=== PATIENT | male | born 1950 | race Caucasian/White ===

== ENCOUNTER 2018-05-14 11:19 | Emergency (ER) | payer MEDICARE, MEDICAID ==
[~2018-05-14] VITALS: Ht 175.3 cm; Wt 84.1 kg
[2018-05-14 11:58] VITALS: BP 152/92
[2018-05-14] MEDS ORDERED: OXYC-658 PO (12:18)
== END 2018-05-14 12:25 | disposition home or self-care (01) ==
LOC: ER 11:19
DX: G89.29 Other chronic pain (principal); M54.9 Dorsalgia, unspecified; M25.569 Pain in unspecified knee; M19.90 Unspecified osteoarthritis, unspecified site; Z79.899 Other long term (current) drug therapy
CPT/HCPCS: 99283

== ENCOUNTER 2021-11-03 17:29 | Emergency (ER) | payer MEDICARE, MEDICAID ==
[~2021-11-03] VITALS: Ht 175.3 cm; Wt 77.3 kg
[2021-11-03] MEDS ORDERED: normal saline 1000ml 1,000 ML IV ONE ×2 (17:55→19:00)
--- NOTE | 2021-11-03 18:30 | NUR ---
bedside report to rupesh dueñas.
--- NOTE | 2021-11-03 20:32 | NUR ---
Patient found wandering in room and in [place]. Patient redirected and given call light repeatedly. Patient appears confused and does not remember why he should not be getting up.
[2021-11-03] MEDS ORDERED: NALO4SPR BOTHNARES (21:53)
[2021-11-03 22:46] VITALS: BP 128/75
== END 2021-11-03 22:49 | disposition home or self-care (01) ==
LOC: ER 17:29
DX: F10.10 Alcohol abuse, uncomplicated (principal); M19.90 Unspecified osteoarthritis, unspecified site; G89.29 Other chronic pain; Z79.899 Other long term (current) drug therapy; T40.601A Poisoning by unspecified narcotics, accidental (unintentional), initial encounter; R40.4 Transient alteration of awareness; Y92.89 Other specified places as the place of occurrence of the external cause; Y90.9 Presence of alcohol in blood, level not specified
CPT/HCPCS: 96360; 96361; 99283; J7030

== ENCOUNTER 2021-11-07 13:59 | Emergency (ER) | payer MEDICARE, MEDICAID ==
[~2021-11-07] VITALS: Ht 175.3 cm; Wt 78.0 kg
[~2021-11-07 13:59] MED LIST: NALO4SPR BOTHNARES
--- NOTE | 2021-11-07 14:15 | NUR ---
pt stated he does not what the "white pwder was or who gave it to him "a friend" pt denies wanting to harm himself. pt stated "sometimes i do stupid stuff"
[2021-11-07 15:37] VITALS: BP 137/85
== END 2021-11-07 15:38 | disposition home or self-care (01) ==
LOC: ER 14:00
DX: T50.901A Poisoning by unspecified drugs, medicaments and biological substances, accidental (unintentional), initial encounter (principal); G89.29 Other chronic pain; M19.90 Unspecified osteoarthritis, unspecified site; F11.90 Opioid use, unspecified, uncomplicated; F19.90 Other psychoactive substance use, unspecified, uncomplicated; Z79.899 Other long term (current) drug therapy; Y92.89 Other specified places as the place of occurrence of the external cause
CPT/HCPCS: 99283

== ENCOUNTER 2021-11-19 16:57 | Emergency (ER) | payer MEDICARE, MEDICAID ==
[~2021-11-19] VITALS: Ht 170.2 cm; Wt 77.3 kg
--- NOTE | 2021-11-19 17:25 | NUR ---
Contacted poison control. Poison control stated to watch for FAGOTER respiratory depression and worsening symptoms. Watch pt for 4-6hrs after last dose of Narcan. Last dose of Narcan given by EMS [facility] OPERATOR.
[2021-11-19 18:08] LABS: BASOPHILS % (AUTO) 0.4 % (0-1); EOSINOPHILS # (AUTO) 0.2 X10'3 (0-0.9); EOSINOPHILS % (AUTO) 3.7 % (0-6); HEMATOCRIT 35.7 % (42.0-52.0); HEMOGLOBIN 12.3 g/dl (14.0-17.9); LYMPHOCYTES # (AUTO) 0.8 X10'3 (1.1-4.8); LYMPHOCYTES % (AUTO) 14.2 % (21-51); MEAN CORPUSCULAR HEMOGLOBIN 32.1 PG (27.0-31.0); MEAN CORPUSCULAR HGB CONC 34.4 g/dL (33.0-36.5); MEAN CORPUSCULAR VOLUME 93.3 FL (78-98); MEAN PLATELET VOLUME 7.5 FL (7.4-10.4); MONOCYTES # (AUTO) 0.5 X10'3 (0-0.9); MONOCYTES % (AUTO) 9.1 % (2-12); NEUTROPHILS # (AUTO) 4.3 X10'3 (1.8-7.7); NEUTROPHILS % (AUTO) 72.6 % (42-75); PLATELET COUNT 194 X10'3 (140-440); RED BLOOD COUNT 3.83 X10'6 (4.70-6.10); RED CELL DISTRIBUTION WIDTH 13.3 % (11.5-14.5); WHITE BLOOD COUNT 5.9 X10'3 (4.5-11.0)
[2021-11-19 18:21] LABS: CLARITY,URINE CLEAR (Clear); COLOR,URINE YELLOW (Yellow); GLUCOSE, URINE NEGATIVE (Neg); KETONES,URINE NEGATIVE (Neg); LEUKOCYTE ESTERASE ,URINE NEGATIVE (Neg); NITRITES, URINE NEGATIVE (Neg); OCCULT BLOOD,URINE NEGATIVE (Neg); PROTEIN,URINE NEGATIVE (Neg); UROBILINOGEN,URINE 0.2 E.U/dL (0.2-1.0)
[2021-11-19 18:22] LABS: ALANINE AMINOTRANSFERASE 51 U/L (12-78); ALBUMIN 3.4 G/DL (3.4-5.0); ALBUMIN/GLOBULIN RATIO 1.1 (1.1-1.5); ALKALINE PHOSPHATASE 83 IU/L (46-116); ANION GAP 10 (8-16); ASPARTATE AMINO TRANSFERASE 62 U/L (10-37); BILIRUBIN,TOTAL 0.5 MG/DL (0.1-1.0); BLOOD UREA NITROGEN 8 MG/DL (7-18); BUN/CREATININE RATIO 9.8 (5.4-32.0); CALCIUM 8.9 MG/DL (8.5-10.1); CHLORIDE 100 MMOL/L (99-107); CREATININE 0.82 MG/DL (0.60-1.10); GLUCOSE 92 MG/DL (70-104); POTASSIUM 4.1 MMOL/L (3.5-5.1); SODIUM 136 MMOL/L (135-145); TOTAL CARBON DIOXIDE 25.9 MMOL/L (24-32); TOTAL PROTEIN 6.6 G/DL (6.4-8.2); eGFR > 90 ML/MIN
[2021-11-19 18:24] LABS: UA COLLECTION TYPE NON-SPECIFIED
[2021-11-19 18:25] LABS: ACETAMINOPHEN < 2.0 UG/ML (10-30); ETHANOL 0.025 GM/DL (0.0-0.010)
[2021-11-19 18:31] LABS: URINE AMPHETAMINE SCREEN NEGATIVE (Neg); URINE BARBITUATE SCREEN NEGATIVE (Neg); URINE BENZODIAZEPINES SCREEN POSITIVE (Neg); URINE CANNABINOID SCREEN NEGATIVE (Neg); URINE COCAINE SCREEN NEGATIVE (Neg); URINE METHADONE SCREEN NEGATIVE (Neg); URINE OPIATE SCREEN NEGATIVE (Neg); URINE PHENCYCLIDINE SCREEN NEGATIVE (Neg)
[2021-11-19] MEDS ORDERED: NALO4SPR BOTHNARES (19:14)
--- NOTE | 2021-11-19 19:16 | NUR ---
Pt signed out AMA after notifying provider that pt wants to leave AMA. PIV d/c fully intact s complication or adverse reaction. Pt pink, alert, no acute/resp distress. Pt denies furhter questions. Steady pt gait.
[2021-11-19 19:17] VITALS: BP 138/67
== END 2021-11-19 19:19 | disposition left against medical advice (07) ==
LOC: ER 16:57
DX: T40.411A Poisoning by fentanyl or fentanyl analogs, accidental (unintentional), initial encounter (principal); M19.90 Unspecified osteoarthritis, unspecified site; G89.29 Other chronic pain; F11.90 Opioid use, unspecified, uncomplicated; Z79.899 Other long term (current) drug therapy; Y92.89 Other specified places as the place of occurrence of the external cause
CPT/HCPCS: 36415; 71045; 80053; 80305; 80320; 80329; 81003; 84484; 85025; 93005; 99285

== ENCOUNTER 2021-12-02 12:22 | Emergency (ER) | payer MEDICARE, MEDICAID ==
[~2021-12-02] VITALS: Ht 170.2 cm; Wt 77.3 kg
[2021-12-02 12:29] VITALS: BP 108/73
--- NOTE | 2021-12-02 13:11 | NUR ---
xray at bedside. pt placed on 2L NC, 02 sat 89% while sleeping.
--- NOTE | 2021-12-02 13:52 | NUR ---
pt's daughter, eliu called. will come to product picker pt. breathing on ra, sats 94%.
== END 2021-12-02 13:45 | disposition home or self-care (01) ==
LOC: ER 12:23
DX: T40.601A Poisoning by unspecified narcotics, accidental (unintentional), initial encounter (principal); G89.29 Other chronic pain; F11.90 Opioid use, unspecified, uncomplicated; F19.90 Other psychoactive substance use, unspecified, uncomplicated; R53.1 Weakness; M19.90 Unspecified osteoarthritis, unspecified site; Z79.899 Other long term (current) drug therapy; Y92.89 Other specified places as the place of occurrence of the external cause
CPT/HCPCS: 71045; 99284

== ENCOUNTER 2021-12-03 21:38 | Emergency (ER) | payer MEDICARE, MEDICAID ==
[~2021-12-03] VITALS: Ht 170.2 cm; Wt 77.3 kg
[2021-12-03 23:06] LABS: BASOPHILS % (AUTO) 0.8 % (0-1); EOSINOPHILS # (AUTO) 0.3 X10'3 (0-0.9); EOSINOPHILS % (AUTO) 4.1 % (0-6); HEMATOCRIT 36.9 % (42.0-52.0); HEMOGLOBIN 12.5 g/dl (14.0-17.9); LYMPHOCYTES # (AUTO) 1.2 X10'3 (1.1-4.8); LYMPHOCYTES % (AUTO) 18.2 % (21-51); MEAN CORPUSCULAR HEMOGLOBIN 31.5 PG (27.0-31.0); MEAN CORPUSCULAR HGB CONC 33.8 g/dL (33.0-36.5); MEAN CORPUSCULAR VOLUME 93.2 FL (78-98); MEAN PLATELET VOLUME 7.3 FL (7.4-10.4); MONOCYTES # (AUTO) 0.7 X10'3 (0-0.9); MONOCYTES % (AUTO) 10.5 % (2-12); NEUTROPHILS # (AUTO) 4.2 X10'3 (1.8-7.7); NEUTROPHILS % (AUTO) 66.4 % (42-75); PLATELET COUNT 203 X10'3 (140-440); RED BLOOD COUNT 3.96 X10'6 (4.70-6.10); RED CELL DISTRIBUTION WIDTH 13.2 % (11.5-14.5); WHITE BLOOD COUNT 6.4 X10'3 (4.5-11.0)
[2021-12-03 23:19] LABS: ALANINE AMINOTRANSFERASE 33 U/L (12-78); ALBUMIN 3.5 G/DL (3.4-5.0); ALKALINE PHOSPHATASE 86 IU/L (46-116); ANION GAP 3 (8-16); ASPARTATE AMINO TRANSFERASE 30 U/L (10-37); BILIRUBIN,TOTAL 0.4 MG/DL (0.1-1.0); BLOOD UREA NITROGEN 18 MG/DL (7-18); BUN/CREATININE RATIO 19.4 (5.4-32.0); CALCIUM 8.7 MG/DL (8.5-10.1); CHLORIDE 102 MMOL/L (99-107); CREATININE 0.93 MG/DL (0.60-1.10); GLUCOSE 104 MG/DL (70-104); SODIUM 136 MMOL/L (135-145); TOTAL CARBON DIOXIDE 30.6 MMOL/L (24-32); eGFR 80 ML/MIN
--- NOTE | 2021-12-03 23:20 | NUR ---
When asked directly, patient stated that he wasn't trying to deliberately hurt himself. He did say, "I keep thinking I can get away with it". Pt states that he uses illegal opioids for arthritis pain.
[2021-12-03 23:29] LABS: ETHANOL < 0.010 GM/DL (0.0-0.010)
[2021-12-03 23:34] LABS: ACETAMINOPHEN < 2.0 UG/ML (10-30)
[2021-12-04 02:12] LABS: URINE AMPHETAMINE SCREEN NEGATIVE (Neg); URINE BARBITUATE SCREEN NEGATIVE (Neg); URINE BENZODIAZEPINES SCREEN POSITIVE (Neg); URINE CANNABINOID SCREEN NEGATIVE (Neg); URINE COCAINE SCREEN NEGATIVE (Neg); URINE METHADONE SCREEN NEGATIVE (Neg); URINE OPIATE SCREEN NEGATIVE (Neg); URINE PHENCYCLIDINE SCREEN NEGATIVE (Neg)
--- NOTE | 2021-12-04 02:42 | NUR ---
Received pt from main ER back to ER overflow. Pt calm and cooperative and laid down in bed.
--- NOTE | 2021-12-04 03:34 | NUR ---
Daughter: Jazlyn: cell: ; home:
--- NOTE | 2021-12-04 05:00 | NUR ---
Pt remains sleeping without signs of distress.
[2021-12-04 06:14] VITALS: BP 132/81
--- NOTE | 2021-12-04 06:44 | NUR ---
pt sleeping quietly at this time.
[2021-12-04 06:46] LABS: CLARITY,URINE CLEAR (Clear); COLOR,URINE YELLOW (Yellow); GLUCOSE, URINE NEGATIVE (Neg); KETONES,URINE NEGATIVE (Neg); LEUKOCYTE ESTERASE ,URINE NEGATIVE (Neg); NITRITES, URINE NEGATIVE (Neg); OCCULT BLOOD,URINE NEGATIVE (Neg); PH,URINE 5.5 (4.8-8.0); PROTEIN,URINE NEGATIVE (Neg); UROBILINOGEN,URINE 0.2 E.U/dL (0.2-1.0)
[2021-12-04 06:51] LABS: UA COLLECTION TYPE URINAL
--- NOTE | 2021-12-04 07:46 | NUR ---
pt awake up to br.
--- NOTE | 2021-12-04 10:08 | NUR ---
[facility] FROM [facility] AT BEDSIDE EVALUATING PATIENT
[2021-12-04] MEDS ORDERED: NALO4SPR BOTHNARES (11:01)
== END 2021-12-04 12:05 | disposition home or self-care (01) ==
LOC: ER 21:38
DX: T40.2X1A Poisoning by other opioids, accidental (unintentional), initial encounter (principal); F11.90 Opioid use, unspecified, uncomplicated; Y92.89 Other specified places as the place of occurrence of the external cause; Z20.822 Contact with and (suspected) exposure to COVID-19; G89.29 Other chronic pain
CPT/HCPCS: 36415; 80053; 80305; 80320; 80329; 81003; 84443; 84484; 85025; 87635; 99285; C9803

== ENCOUNTER 2023-06-24 20:07 | Emergency (ER) | payer MEDICARE, MEDICAID ==
[~2023-06-24] VITALS: Ht 177.8 cm; Wt 84.5 kg
[2023-06-24 20:29] LABS: ABG BASE EXCESS -4.9 mmol/L (-2.0-2.0); ABG HCO3 19.5 mmol/L (22.0-26.0); ABG OXYGEN SATURATION 95.8 % (94-97); ABG PCO2 (T) 33.8 mmHg (35.0-48.0); ABG PH (T) 7.377 (7.340-7.440); ABG PO2 (T) 82.9 mmHg (75.0-100.0); ALLEN'S TEST Modified; FCOHb 0.3 % (0.0-3.9); FHHb 4.2 % (0.0-5.0); FLOW 6 L/min; FMetHb 0.2 % (0.0-1.5); FO2Hb 95.3 % (94-97); MODE NASAL CANNULA; PATIENT TEMPERATURE 36.5; TOTAL HEMOGLOBIN 14.3 G/dl (14.0-17.9)
[2023-06-24 20:45] LABS: BASOPHILS # (AUTO) 0.1 X10'3 (0-0.2); EOSINOPHILS # (AUTO) 0.2 X10'3 (0-0.9); MEAN PLATELET VOLUME 7.4 FL (7.4-10.4)
[2023-06-24 20:47] LABS: BASOPHILS % (AUTO) 0.9 % (0-1); EOSINOPHILS % (AUTO) 3.5 % (0-6); HEMATOCRIT 37.8 % (42.0-52.0); HEMOGLOBIN 12.9 g/dl (14.0-17.9); LYMPHOCYTES # (AUTO) 1.8 X10'3 (1.1-4.8); LYMPHOCYTES % (AUTO) 28.4 % (21-51); MEAN CORPUSCULAR HEMOGLOBIN 32.4 PG (27.0-31.0); MEAN CORPUSCULAR HGB CONC 34.2 g/dL (33.0-36.5); MEAN CORPUSCULAR VOLUME 94.7 FL (78-98); MONOCYTES # (AUTO) 0.5 X10'3 (0-0.9); MONOCYTES % (AUTO) 7.8 % (2-12); NEUTROPHILS # (AUTO) 3.8 X10'3 (1.8-7.7); NEUTROPHILS % (AUTO) 59.4 % (42-75); PLATELET COUNT 226 X10'3 (140-440); RED CELL DISTRIBUTION WIDTH 13.8 % (11.5-14.5); WHITE BLOOD COUNT 6.3 X10'3 (4.5-11.0)
[2023-06-24 20:59] LABS: ALANINE AMINOTRANSFERASE 37 U/L (12-78); ALBUMIN 3.4 G/DL (3.4-5.0); ALBUMIN/GLOBULIN RATIO 1.2 (1.1-1.5); ALKALINE PHOSPHATASE 90 IU/L (46-116); ANION GAP 13 (8-16); ASPARTATE AMINO TRANSFERASE 63 U/L (10-37); BILIRUBIN,TOTAL 0.2 MG/DL (0.1-1.0); BLOOD UREA NITROGEN 12 MG/DL (7-18); BUN/CREATININE RATIO 12.2 (10.0-20.0); CALCIUM 8.6 MG/DL (8.5-10.1); CHLORIDE 106 MMOL/L (99-107); CREATININE 0.98 MG/DL (0.60-1.10); GLUCOSE 144 MG/DL (70-104); POTASSIUM 3.6 MMOL/L (3.5-5.1); SODIUM 142 MMOL/L (135-145); TOTAL PROTEIN 6.3 G/DL (6.4-8.2); eCRCL 68 ML/MIN; eGFR 75 ML/MIN
[2023-06-24 21:10] LABS: ETHANOL 90 MG/DL (<10); THYROID STIMULATING HORMONE 1.29 ulU/ml (0.34-4.50)
[2023-06-24] MEDS ORDERED: naloxone 0.4 mg/ml inj IV ONE (22:00)
--- NOTE | 2023-06-24 22:31 | NUR ---
Per daughter, pt used fentanyl earlier tonight, as well as his prescribed diazepam and ETOH. Daughter also states pt is a heavy drinker and his only signifcant medical history is arthritis.
[2023-06-24 23:19] LABS: URINE AMPHETAMINE SCREEN NEGATIVE (Neg); URINE BARBITUATE SCREEN NEGATIVE (Neg); URINE BENZODIAZEPINES SCREEN POSITIVE (Neg); URINE CANNABINOID SCREEN NEGATIVE (Neg); URINE COCAINE SCREEN NEGATIVE (Neg); URINE METHADONE SCREEN NEGATIVE (Neg); URINE OPIATE SCREEN NEGATIVE (Neg); URINE PHENCYCLIDINE SCREEN NEGATIVE (Neg)
[2023-06-25] MEDS ORDERED: MELO-102 PO (00:49)
[2023-06-25] MEDS ORDERED: DIAZ10TA5 PO (00:49)
[2023-06-25 02:18] LABS: PRO BRAIN NATRIURETIC PEPTIDE 36 PG/ML (0-125)
[2023-06-25 05:00] VITALS: BP 129/72; PULSE 72; RESP 14; TEMP 98.6; O2SAT 95
[2023-06-25] MEDS ORDERED: NALO4SPR BOTHNARES (05:22)
== END 2023-06-25 07:39 | disposition home or self-care (01) ==
LOC: ER 20:07
DX: T40.411A Poisoning by fentanyl or fentanyl analogs, accidental (unintentional), initial encounter (principal); R40.4 Transient alteration of awareness; M19.90 Unspecified osteoarthritis, unspecified site; G89.29 Other chronic pain; F11.90 Opioid use, unspecified, uncomplicated; Z79.899 Other long term (current) drug therapy; Y92.89 Other specified places as the place of occurrence of the external cause
CPT/HCPCS: 36415; 36600; 70450; 71045; 80053; 80305; 80320; 82140; 82803; 83880; 84443; 84484; 85018; 85025; 93005; 99285; A4314